=== PATIENT | female | born 1980 | race Caucasian/White ===

== ENCOUNTER 2016-12-10 14:25 | Emergency (ER) | payer MEDICAID, OTHER ==
[~2016-12-10] VITALS: Ht 167.6 cm; Wt 120.5 kg
[2016-12-10] MEDS ORDERED: INSU200I4 SQ (14:51)
[2016-12-10] MEDS ORDERED: VENL50TA44 PO (14:51)
[2016-12-10] MEDS ORDERED: METF500T4 PO (14:51)
[2016-12-10 15:27] LABS: GLUCOSE,POINT OF CARE 94 MG/DL (70-110)
[2016-12-10] MEDS ORDERED: VENL-68 PO (16:04)
[2016-12-10] MEDS ORDERED: KETOROLAC TROMETHAMINE 60 MG/2 ML VIAL IM ONE (17:15)
[2016-12-10] MEDS ORDERED: ONDANSETRON HCL 4 MG/2 ML VIAL IVP ONE (17:15)
[2016-12-10] MEDS ORDERED: SODIUM CHLORIDE 0.9% 1,000 ML IV ONE (17:15)
[2016-12-10] MEDS ORDERED: KETOROLAC TROMETHAMINE 30 MG/ML VIAL IVP ONE (17:15)
[2016-12-10 19:47] VITALS: BP 127/74
== END 2016-12-10 19:50 | disposition home or self-care (01) ==
LOC: EMS 14:26
DX: G43.909 Migraine, unspecified, not intractable, without status migrainosus (principal); E11.9 Type 2 diabetes mellitus without complications; Z88.8 Allergy status to other drugs, medicaments and biological substances
CPT/HCPCS: 81025; 82962; 96361; 96374; 96375; 99285; J1885; J2405; J7030